=== PATIENT | female | born 1995 | race African-American/Black ===

== ENCOUNTER 2018-07-10 11:07 | Emergency (ER) | payer MEDICAID ==
[~2018-07-10] VITALS: Ht 167.6 cm; Wt 80.0 kg
[~2018-07-10 11:07] MED LIST: PREN-88 PO
[2018-07-10 11:13] VITALS: BP 119/83
[2018-07-10] MEDS ORDERED: LIDOCAINE HCL/PF 1% 10 MG/ML 5ML VIAL IJ ONE (12:00)
[2018-07-10] MEDS ORDERED: ACETAMINOPHEN 325MG TABLET PO ONE (12:00)
== END 2018-07-10 13:43 | disposition home or self-care (01) ==
LOC: ER 12:28
DX: S01.511A Laceration without foreign body of lip, initial encounter (principal); I10 Essential (primary) hypertension; F12.10 Cannabis abuse, uncomplicated; F17.200 Nicotine dependence, unspecified, uncomplicated; Z79.899 Other long term (current) drug therapy; Z98.890 Other specified postprocedural states; Y04.0XXA Assault by unarmed brawl or fight, initial encounter; Y93.89 Activity, other specified; Y92.89 Other specified places as the place of occurrence of the external cause; Y99.8 Other external cause status
CPT/HCPCS: 12011; 70486; 81025; 99284; J3490

== ENCOUNTER 2019-06-10 15:24 | Emergency (ER) | payer MEDICAID ==
[~2019-06-10] VITALS: Ht 167.6 cm; Wt 79.0 kg
[2019-06-10 15:54] VITALS: BP 112/52
== END 2019-06-10 18:24 | disposition left against medical advice (07) ==
LOC: ER 15:24
DX: M79.606 Pain in leg, unspecified (principal); Z53.21 Procedure and treatment not carried out due to patient leaving prior to being seen by health care provider

== ENCOUNTER 2019-11-07 11:03 | Emergency (ER) | payer MEDICAID ==
[~2019-11-07] VITALS: Ht 167.6 cm; Wt 75.0 kg
[2019-11-07 12:28] LABS: BASOPHILS % 0.3 % (0.0-2.0); EOSINOPHILS % 1.5 % (0.0-5.0); HEMATOCRIT. 39.4 % (36.0-48.0); HEMOGLOBIN. 13.3 g/dL (12.0-16.0); LYMPHOCYTES % 29.7 % (20.0-50.0); MEAN CORPUSCULAR HEMOGLOBIN 27.7 pg (28.0-32.0); MEAN CORPUSCULAR VOLUME 81.8 fL (81.0-99.0); MEAN PLATELET VOLUME 8.6 fl (7.4-10.4); MONOCYTES % 10.9 % (2.0-8.0); NEUTROPHILS % 57.6 % (40.0-76.0); PLATELET 188 x1000/uL (130-400); RED BLOOD CELL COUNT 4.81 mill/uL (4.2-5.4); RED CELL DISTRIBUTION WIDTH 14.5 % (11.6-14.6)
[2019-11-07 12:36] LABS: CHLORIDE 104 mEq/L (98-107)
[2019-11-07 12:47] LABS: B-HCG QUANTITATIVE < 1 mIU/mL (<3)
[2019-11-07 13:50] VITALS: BP 115/68
== END 2019-11-07 13:54 | disposition home or self-care (01) ==
LOC: ER 11:03
DX: N83.209 Unspecified ovarian cyst, unspecified side (principal); R10.30 Lower abdominal pain, unspecified; R51 Headache; N93.9 Abnormal uterine and vaginal bleeding, unspecified; I10 Essential (primary) hypertension; Z98.890 Other specified postprocedural states
CPT/HCPCS: 36415; 76830; 76856; 80053; 81025; 84702; 85025; 99284

== ENCOUNTER 2022-12-18 10:26 | Emergency (ER) | payer MEDICAID, OTHER ==
[~2022-12-18] VITALS: Ht 167.6 cm; Wt 79.5 kg
[2022-12-18 11:10] LABS: CHLORIDE 105 mEq/L (98-107)
[2022-12-18 11:19] LABS: BASOPHILS % 0.2 % (0.0-2.0); EOSINOPHILS % 0.2 % (0.0-5.0); HEMATOCRIT. 39.2 % (36.0-48.0); HEMOGLOBIN. 13.2 g/dL (12.0-16.0); LYMPHOCYTES % 13.3 % (20.0-50.0); MEAN CORPUSCULAR HEMOGLOBIN 27.4 pg (28.0-32.0); MEAN CORPUSCULAR VOLUME 81.2 fL (81.0-99.0); MEAN PLATELET VOLUME 8.6 fl (7.4-10.4); NEUTROPHILS % 81.3 % (40.0-76.0); PLATELET 187 x1000/uL (130-400); RED BLOOD CELL COUNT 4.82 mill/uL (4.2-5.4); RED CELL DISTRIBUTION WIDTH 13.9 % (11.6-14.6)
[2022-12-18 11:44] LABS: CLARITY URINE CLEAR (CLEAR); COLOR URINE DARK YELLOW (YELLOW); KETONES URINE 1+ (NEGATIVE); LEUKOCYTE ESTERASE URINE NEGATIVE (NEGATIVE); NITRITE URINE NEGATIVE (NEGATIVE); OCCULT BLOOD URINE NEGATIVE (NEGATIVE); PROTEIN URINE TRACE (NEGATIVE); UROBILINOGEN URINE 0.2 E.U./dL (0.2-1.0)
[2022-12-18] MEDS ORDERED: SODIUM CHLORIDE 0.9% 1,000 ML IV ONE (14:30)
[2022-12-18] MEDS ORDERED: TETRACAINE 0.5% OPHTH DROPS 4ML LEFTEYE ONE (14:30)
[2022-12-18] MEDS ORDERED: ACETAMINOPHEN 325MG TABLET PO ONE (14:30)
[2022-12-18] MEDS ORDERED: FLUORESCEIN SODIUM 1MG/STRIP LEFTEYE ONE (14:30)
[2022-12-18] MEDS ORDERED: IOHEXOL-350 100 ML BOTTLE ONE (17:18)
[2022-12-18] MEDS ORDERED: AMLO2.5T45 MT (20:38)
[2022-12-18 20:40] VITALS: BP 110/54
== END 2022-12-18 20:42 | disposition home or self-care (01) ==
LOC: ER 10:26
DX: H54.7 Unspecified visual loss (principal); Z32.02 Encounter for pregnancy test, result negative; I10 Essential (primary) hypertension; Z98.890 Other specified postprocedural states
CPT/HCPCS: 36415; 70496; 70498; 80053; 81003; 81025; 85025; 96360; 96361; 99285; J7030; Q9967; Z7610